=== PATIENT | female | born 1995 | race Caucasian/White ===

== ENCOUNTER 2020-07-06 13:21 | Inpatient (IN) | payer OTHER ==
[~2020-07-06] VITALS: Ht 154.9 cm; Wt 78.0 kg
[~2020-07-06 13:21] MED LIST: NORCO 5-325 TA1 EACH PO; PHENERGAN 12.12.5 M1 PO
[2020-07-06 16:16] LABS: HEMOGLOBIN 12.6 gm/dl (12.3-15.3); RED BLOOD COUNT 4.05 M/UL (4.00-5.10); WHITE BLOOD COUNT 14.5 K/UL (4.5-11.0)
[2020-07-06] MEDS ORDERED: PEPCID20 MG PO (17:53)
[2020-07-06] MEDS ORDERED: CELEXA20 MG PO (17:54)
[2020-07-06] MEDS ORDERED: FOLIC ACID 1 MG1 MG PO (17:55)
[2020-07-08] MEDS ORDERED: IBU600 MG PO (19:53)
[2020-07-08] MEDS ORDERED: COLACE 100MG C100 MG PO (19:53)
[2020-07-09 06:49] LABS: HEMOGLOBIN 10.5 gm/dl (12.3-15.3)
== END 2020-07-10 15:54 | disposition home or self-care (01) | DRG 806 ==
LOC: GENOP 13:21 → OB 14:48
PROVIDERS: Obstetrics & Gynecology; ADMIT Obstetrics & Gynecology
PROC: 0U7C7ZZ Dilation of Cervix, Via Natural or Artificial Opening (ICD-10-PCS; 2020-07-07)
PROC: 10E0XZZ Delivery of Products of Conception, External Approach (ICD-10-PCS; principal; 2020-07-08)
PROC: 10907ZC Drainage of Amniotic Fluid, Therapeutic from Products of Conception, Via Natural or Artificial Opening (ICD-10-PCS; 2020-07-08)
PROC: 0HQ9XZZ Repair Perineum Skin, External Approach (ICD-10-PCS; 2020-07-08)
DX: O42.92 Full-term premature rupture of membranes, unspecified as to length of time between rupture and onset of labor (principal); O75.2 Pyrexia during labor, not elsewhere classified; Z37.0 Single live birth; Z3A.39 39 weeks gestation of pregnancy; O63.1 Prolonged second stage (of labor); Z20.822 Contact with and (suspected) exposure to COVID-19; Z28.21 Immunization not carried out because of patient refusal
CPT/HCPCS: 36415; 51702; 81001; 82800; 83518; 85014; 85018; 85025; 87635; J0595; J1580; J1956; J2210; J2405; J2590; J7120

== ENCOUNTER 2021-04-10 19:31 | Emergency (ER) | payer OTHER ==
[~2021-04-10 19:31] MED LIST changes: +CELEXA20 MG PO; +COLACE 100MG C100 MG PO; +FOLIC ACID 1 MG1 MG PO; +IBU600 MG PO; +PEPCID20 MG PO
[2021-04-10] MEDS ORDERED: LODINE CAP 300300 MG PO (20:38)
[2021-04-10] MEDS ORDERED: POLYSPORIN OI28.3 G1 TP (20:38)
== END 2021-04-10 21:34 | disposition home or self-care (01) ==
LOC: ER1 19:31
DX: T24.202A Burn of second degree of unspecified site of left lower limb, except ankle and foot, initial encounter (principal); T24.201A Burn of second degree of unspecified site of right lower limb, except ankle and foot, initial encounter; Z88.0 Allergy status to penicillin; X12.XXXA Contact with other hot fluids, initial encounter
CPT/HCPCS: 16020; 99283